=== PATIENT | female | born 1960 | race Caucasian/White ===

== ENCOUNTER → 2021-01-09 10:37 | Outpatient (CLI) | payer BC, SELFPAY ==
--- NOTE | ~2021-01-09 | MM_ITS ---
EXAMINATION: MM screening [facility] w cesia HISTORY: Screening TECHNIQUE: Craniocaudal and mediolateral oblique 3-D tomosynthesis images were obtained and synthetic 2-D images were generated. CAD analysis was submitted and interpreted. COMPARISON: Comparison to multiple prior studies sequentially, with oldest reviewed study dated 04/2014. BREAST PARENCHYMAL COMPOSITION: There are scattered areas of fibroglandular density. FINDINGS: There is no evidence of suspicious mass, calcification, or architectural distortion to sugg est malignancy in either breast. There has been no suspicious interval change. IMPRESSION: 1. No mammographic evidence of malignancy. 2. Recommend routine screening mammography in one year. BI-RADS Category 1: Negative Reviewed, dictated and finalized at location A. 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
== END ==
PROVIDERS: PCP Family Medicine; Visit Provider Obstetrics & Gynecology
DX: Z12.31 Encounter for screening mammogram for malignant neoplasm of breast (principal)
CPT/HCPCS: 77063; 77067

== ENCOUNTER → 2021-07-21 01:58 | Outpatient (CLI) | payer BC, SELFPAY ==
[2021-07-21 19:54] LABS: SARS-CoV-2 RNA PCR Negative
== END ==
PROVIDERS: PCP Family Medicine; Visit Provider Internal Medicine Gastroenterology
DX: Z01.812 Encounter for preprocedural laboratory examination (principal); Z20.822 Contact with and (suspected) exposure to COVID-19
CPT/HCPCS: C9803; U0003; U0005

== ENCOUNTER 2021-07-24 02:24 | Day surgery (SDC) | payer BC, SELFPAY ==
[2021-07-13 14:36] VITALS: BMI 23.8
[2021-07-24 06:36] VITALS: BP 129/69; PULSE 105; RESP 20; TEMP 36.2; O2SAT 97; BMI 23.3
[2021-07-24] MEDS: LACTATED RINGERS 1,000 ML 150 ML IV CONT (06:46)
--- NOTE | 2021-07-24 07:15 | WPDANESEPPF ---
Anes - Initial Pre Proc Eval Procedure: Operation Date: 07/24/21 07:30 Proposed Procedures p Screening Colonoscopy - Martin Burton MD Date/Time: 07/24/21 07:15 Surgeon: Martin Burton MD Pre Op Diagnosis: hx of colon polyps Patient Data Age: 60 Gender: F Height: 1.57 m Weight: 58 kg Last Vital Signs Temp 97.1 F L 07/24/21 06:36 Pulse 105 H 07/24/21 06:36 Resp 20 07/24/21 06:36 BP 129/69 07/24/21 06:36 Pulse Ox 97 07/24/21 06:36 Allergies Allergy/AdvReac Type Severity Reaction Status Date / Time bupropion Allergy Unknown Difficulty Verified 07/24/21 06:35 Breathing Penicillins Allergy Unknown Hives Verified 07/24/21 06:35 Home Medications Medication Instructions Recorded Confirmed Type aspirin 81 mg PO DAILY 07/13/21 07/24/21 History baclofen 10 mg PO PRN PRN 07/13/21 07/24/21 History gabapentin 400 mg PO BID 07/13/21 07/24/21 History hydrocodone-acetaminophen 1 tablet PO PRN PRN 07/13/21 07/24/21 History simvastatin 40 mg PO DAILY 07/13/21 07/24/21 History Patient hx anesthesia problems: none Family hx anesthesia problems: none PMFSH Past Medical History Medical History (Updated 07/24/21 @ 07:11 by José Miguel Cheney MD) Hyperlipidemia Family History Family History (Updated 06/18/16 @ 23:19 by DOCTOR UNKNOWN) Mother Family history of diabetes mellitus in first degree relative Family history of macular degeneration Father Family history of malignant neoplasm of urinary bladder Family history of heart disease in male family member before age 55 Social History Social History Years smoked: 40 Smoking status: Current every day smoker Tobacco type: cigarettes Alcohol intake: never Substance use: never Substance use type: does not use Living arrangements: with family Spiritual care concerns: No Anes - Eval Final PreProcedure Day of Procedure 07/24/21 07:15 Patient weight: normal Heart: regular rate and rhythm Lungs: clear to auscultation Airway: Mallampati scale class II Neurological: alert and oriented Last oral intake: >/= 8 hours ASA classification: II Emergent: no Anesthetic plan: proceed Anesthesia type and monitoring: general GIVS and standard monitoring Informed Consent: The patient's anesthetic plan and its attendant risks and benefits were discussed with the patient/family/POA. Questions were solicited and answers provided to the satisfaction of the patient/family/POA.
--- NOTE | 2021-07-24 07:23 | P.CONGI_ITS ---
Assessment and Plan Assessment and plan (1) History of colon polyps: Code(s): Z86.010 - Personal history of colonic polyps Status: Acute Assessment and Plan: Patient has a history of colon polyps on previous colonoscopies. Plan is for screening colonoscopy now and at 5 year intervals. GI Consult Note Consult date/time: 07/24/21 07:23 HPI: Avelina Verdin is a 60 year old female Presents for screening colonoscopy. Patient has a prior history of colon polyps on 2 previous colonoscopies. Her current weight appetite and bowel movements are normal. She denies abdominal pain. She has had no blood in her stools. Family history is noncontributory. Patient presents today for neoplasia screening. It has been 5 years since last colonoscopy. Review of Systems Review of Systems: All systems reviewed & are unremarkable except as noted in HPI and below PMFSH Past Medical History Medical History (Updated 07/24/21 @ 07:24 by Martin Burton MD) Hyperlipidemia Family History Family History (Updated 06/18/16 @ 23:19 by DOCTOR UNKNOWN) Mother Family history of diabetes mellitus in first degree relative Family history of macular degeneration Father Family history of malignant neoplasm of urinary bladder Family history of heart disease in male family member before age 55 Social History Social History Years smoked: 40 Smoking status: Current every day smoker Tobacco type: cigarettes Alcohol intake: never Substance use: never Substance use type: does not use Living arrangements: with family Spiritual care concerns: No Meds Home Medications and Allergies Home Medications Medication Instructions Recorded Confirmed Type aspirin 81 mg PO DAILY 07/13/21 07/24/21 History baclofen 10 mg PO PRN PRN 07/13/21 07/24/21 History gabapentin 400 mg PO BID 07/13/21 07/24/21 History hydrocodone-acetaminophen 1 tablet PO PRN PRN 07/13/21 07/24/21 History simvastatin 40 mg PO DAILY 07/13/21 07/24/21 History Allergies Allergy/AdvReac Type Severity Reaction Status Date / Time bupropion Allergy Unknown Difficulty Verified 07/24/21 06:35 Breathing Penicillins Allergy Unknown Hives Verified 07/24/21 06:35 Vital Signs Vital Signs - 24 hr 07/24/21 06:36 Temperature 97.1 F L Pulse Rate 105 H Respiratory Rate 20 Blood Pressure 129/69 Pulse Oximetry 97 Exam Narrative: Physical exam reveals patient to be alert. Vital signs are stable. HEENT exam is unremarkable. Patient is anicteric. Lungs are clear to auscultation and percussion. Heart is without murmur or extra sounds. Abdominal exam bowel sounds are present soft nontender with no organomegaly. D igital external rectal exam is normal.
[2021-07-24 07:59] VITALS: BP 97/58; PULSE 94; RESP 20; O2SAT 98
[2021-07-24 08:09] VITALS: BP 109/71; PULSE 96; RESP 25; O2SAT 100
[2021-07-24 08:19] VITALS: BP 114/74; PULSE 86; RESP 22; O2SAT 100
== END 2021-07-24 08:26 | disposition home or self-care (01) ==
PROVIDERS: PCP Family Medicine; Visit Provider Internal Medicine Gastroenterology
PROC: 0DJD8ZZ Inspection of Lower Intestinal Tract, Via Natural or Artificial Opening Endoscopic (ICD-10-PCS; CPT 45378; principal; 2021-07-24 07:30)
DX: Z12.11 Encounter for screening for malignant neoplasm of colon (principal); E78.5 Hyperlipidemia, unspecified; F17.200 Nicotine dependence, unspecified, uncomplicated; Z86.010 Personal history of colon polyps; K64.8 Other hemorrhoids
CPT/HCPCS: 45378; J2704; J7120

== ENCOUNTER → 2022-03-31 10:37 | Outpatient (CLI) | payer BC, SELFPAY ==
--- NOTE | ~2022-03-31 | MM_ITS ---
EXAMINATION: MM screening [facility] BI w cesia HISTORY: Screening TECHNIQUE: Craniocaudal and mediolateral oblique 3-D tomosynthesis images were obtained and synthetic 2-D images were generated. CAD analysis was submitted and interpreted. COMPARISON: Comparison to multiple prior studies sequentially, with oldest reviewed study dated 04/18. BREAST PARENCHYMAL COMPOSITION: There are scattered areas of fibroglandular density. FINDINGS: There is no evidence of suspicious mass, calcification, or architectural distortion to sugg est malignancy in either breast. There has been no suspicious interval change. IMPRESSION: 1. No mammographic evidence of malignancy. 2. Recommend routine screening mammography in one year. BI-RADS Category 1: Negative Reviewed, dictated and finalized at location A.
== END ==
PROVIDERS: PCP Family Medicine; Visit Provider Obstetrics & Gynecology
DX: Z12.31 Encounter for screening mammogram for malignant neoplasm of breast (principal)
CPT/HCPCS: 77063; 77067

== ENCOUNTER → 2023-06-30 10:17 | Outpatient (CLI) | payer BC, SELFPAY ==
--- NOTE | ~2023-06-30 | MM_ITS ---
EXAMINATION: MM screening [facility] BI w cesia HISTORY: Screening mammogram, family history of breast cancer in her sister. TECHNIQUE: Craniocaudal and mediolateral oblique 3-D tomosynthesis images were obtained and synthetic 2-D images were generated. CAD analysis was submitted and interpreted. COMPARISON: 03/31/2022, 01/09/2021, 11/29/2019, 08/11/2018 BREAST PARENCHYMAL COMPOSITION: There are scattered areas of fibroglandular density. FINDINGS: No suspicious mass, calcification, or architectural distortion are identified in either bria ast to suggest malignancy. There has been no suspicious interval change. IMPRESSION: 1. No mammographic evidence of malignancy. 2. Recommend routine screening mammography in one year. BI-RADS Category 1: Negative Reviewed, dictated and finalized at location A.
== END ==
PROVIDERS: PCP Obstetrics & Gynecology; Visit Provider Obstetrics & Gynecology
DX: Z12.31 Encounter for screening mammogram for malignant neoplasm of breast (principal)
CPT/HCPCS: 77063; 77067

== ENCOUNTER 2025-01-16 12:40 | Outpatient (CLI) | payer BC, SELFPAY ==
--- NOTE | ~2025-01-16 | XR_ITS ---
EXAMINATION: XR foot LT 2V DATE: 01/16/2025 12:53 INDICATION: Plantar fascial fibromatosis with pain over the dorsum of the left foot TECHNIQUE: Dorsoplantar and lateral views of the left foot were obtained. COMPARISON: None. FINDINGS: Bone alignment is normal. No fracture. Mild polyarticular osteoarthritis involving at the calcaneocub oid, talonavicular, first metatarsophalangeal and a few tarsometatarsal and interphalangeal joints. N o erosions to suggest inflammatory arthritis. Small plantar calcaneal spur. Small enthesopathic ossic le at the distal Achilles tendon. Soft tissues are unremarkable. IMPRESSION: 1. Mild degenerative skeletal changes in the left foot as detailed above. Reviewed, dictated and finalized at location B. 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
== END 2025-01-16 12:41 | disposition home or self-care (01) ==
LOC: MICIMG 12:42
PROVIDERS: PCP Family Medicine; Visit Provider Family Medicine
DX: M72.2 Plantar fascial fibromatosis (principal); M19.072 Primary osteoarthritis, left ankle and foot
CPT/HCPCS: 73620

== ENCOUNTER 2025-04-10 12:51 | Outpatient (CLI) | payer MEDICARE, SELFPAY ==
--- NOTE | ~2025-04-10 | US_ITS ---
US thyroid INDICATION: Nontoxic goiter. TECHNIQUE: Real-time sonographic images of the thyroid gland were obtained. COMPARISON: Comparison to multiple prior studies sequentially, with oldest reviewed study dated 06/17. FINDINGS: The right thyroid lobe measures 6 x 2.1 x 2.3 cm. The left thyroid lobe measures 4.7 x 2 x 1.9 cm. Thyroid gland is diffusely heterogeneous. In the right lobe there is a solid hypoechoic mass which is wider than tall measuring 1.5 x 1.4 x 1 cm with microcalcifications. In the right lobe ther e is a solid wider than tall slightly hyperechoic mass which contains microcalcifications, ill-define d margins measuring 2.2 x 1.3 x 2.1 cm without significant change. In the right lobe there is a solid wider than tall hypoechoic mass measuring 1.9 x 1.4 x 1.3 cm which has enlarged since prior examinat ion. There are internal microcalcifications, TR 5. This has enlarged since prior examination. There are multiple masses of the left lobe including a 9 mm mass which is hypoechoic, wider than tall with internal calcifications, ill-defined margins, TR 5. IMPRESSION: 1. Multinodular goiter. Consider follow-up ultrasound in 12 months. Reviewed, dictated and finalized at location B.
== END 2025-04-10 12:52 | disposition home or self-care (01) ==
LOC: MICIMG 12:54
PROVIDERS: PCP Family Medicine; Visit Provider Family Medicine
DX: E04.2 Nontoxic multinodular goiter (principal)
CPT/HCPCS: 76536

== ENCOUNTER 2025-09-17 12:52 | Outpatient (CLI) | payer BC, MEDICARE, SELFPAY ==
--- NOTE | ~2025-09-17 | MM_ITS ---
EXAMINATION: MM screening [facility] BI w cesia HISTORY: Screening TECHNIQUE: Craniocaudal and mediolateral oblique 3-D tomosynthesis images were obtained and synthetic 2-D images were generated. CAD analysis was submitted and interpreted. COMPARISON: Comparison to multiple prior studies sequentially, with oldest reviewed study dated 08/01/2017. BREAST PARENCHYMAL COMPOSITION: Not dense: There are scattered areas of fibroglandular density. FINDINGS: There is no evidence of suspicious mass, calcification, or architectural distortion to suggest malignancy in either breast. There has been no suspicious interval change. IMPRESSION: 1. No mammographic evidence of malignancy. 2. Recommend routine screening mammography in one year. BI-RADS Category 1: Negative Reviewed, dictated and finalized at location B.
== END 2025-09-17 12:53 | disposition home or self-care (01) ==
LOC: MICIMG 12:54
PROVIDERS: PCP Family Medicine; Visit Provider Family Medicine
DX: Z12.31 Encounter for screening mammogram for malignant neoplasm of breast (principal)
CPT/HCPCS: 77063; 77067